=== PATIENT | female | born 1970 ===

== ENCOUNTER 2021-05-01 12:50 | Emergency (ER) | payer SELFPAY ==
[2021-05-02 11:30] LABS: SARS-CoV-2 PCR by NAA Indeterminate (NotDetected)
== END 2021-05-01 14:55 | disposition home or self-care (01) ==
LOC: ERS 12:50
DX: R05 Cough (principal); Z20.822 Contact with and (suspected) exposure to COVID-19; I10 Essential (primary) hypertension
CPT/HCPCS: 99283; U0003; U0005